=== PATIENT | female | born 1930 | race Caucasian/White ===

== ENCOUNTER 2016-04-10 12:02 | Inpatient (IN) | payer MEDICARE, BC, OTHER ==
[~2016-04-10] VITALS: Ht 149.9 cm; Wt 62.1 kg
[2016-04-10 13:55] VITALS: Ht 149.9 cm; Wt 62.1 kg
[2016-04-10 13:56] VITALS: BP_SYST 104; RESP 18; TEMP 98.1
[2016-04-10] MEDS ORDERED: SODIUM CHLORIDE 0.9% 1,000 ML IV SCH (14:10)
[2016-04-10 15:41] VITALS: BP_SYST 98; RESP 16; TEMP 97.8
[2016-04-10] MEDS ORDERED: humuLIN REG INSULIN IV PUSH ONE (16:15)
[2016-04-10] MEDS ORDERED: KAYEXOLATE 15 GM/60 ML BTL PO ONE (16:15)
[2016-04-10] MEDS ORDERED: SODIUM BICARB 8.4% 150 ML in DEXTROSE 5% 1,000 ML IV ONE (16:15)
[2016-04-10] MEDS: DEXTROSE 50% SYRINGE 50 ML IV ONE ×2 (16:15→18:01)
[2016-04-10] MEDS ORDERED: GLUCAGON 1 MG VIAL IM PRN (16:50)
[2016-04-10] MEDS ORDERED: DEXTROSE 50% SYRINGE 50 ML IV PRN (16:50)
[2016-04-10] MEDS ORDERED: SALINE FLUSH 10 ML FLUSH PRN (17:00)
[2016-04-10 17:28] VITALS: RESP 16
[2016-04-10] MEDS ORDERED: TRAMADOL 50 MG TAB PO PRN (18:50)
[2016-04-10] MEDS ORDERED: FAMOTIDINE 20 MG/50 ML 50 ML IV SCH (20:00)
[2016-04-10 20:26] VITALS: BP_SYST 108; RESP 20; TEMP 98.1
[2016-04-10] MEDS: LACTULOSE SOLN 20GM/30ML UDC PO SCH (20:57)
[2016-04-10] MEDS: SALINE FLUSH 10 ML FLUSH SCH (20:57)
[2016-04-10] MEDS: FAMOTIDINE 20 MG INJ IV SCH (20:58)
[2016-04-10 23:04] VITALS: BP_SYST 113; RESP 18; TEMP 98
[2016-04-10] MEDS: CEFTRIAXONE 1 GM in SODIUM CHLORIDE 0.9% 50 ML IV SCH (23:22)
[2016-04-10] MEDS: Atorvastatin 40 MG TAB PO SCH (23:22)
[2016-04-11] VITALS (8 sets, daily range): BP systolic 94–114; RESP 16–18; TEMP 98.1–98.8
[2016-04-11] MEDS: SODIUM CHLORIDE 0.9% 1,000 ML IV SCH ×2 (03:08→16:45)
[2016-04-11] MEDS: SODIUM CHLORIDE 0.9% FLUSH BAG 500 ML IV SCH (03:08)
[2016-04-11] MEDS: LEVOTHYROXINE 0.125 MG TAB PO SCH (07:28)
[2016-04-11] MEDS: FAMOTIDINE 20 MG INJ IV SCH ×2 (08:19→20:43)
[2016-04-11] MEDS: LACTULOSE SOLN 20GM/30ML UDC PO SCH ×2 (08:19→20:43)
[2016-04-11] MEDS: TAMSULOSIN 0.4 MG CAP PO SCH (08:19)
[2016-04-11] MEDS: CLOPIDOGREL 75 MG TAB PO SCH (08:19)
[2016-04-11] MEDS: DULoxetine 30 MG CAP PO SCH (08:19)
[2016-04-11] MEDS: CEFTRIAXONE 1 GM in SODIUM CHLORIDE 0.9% 50 ML IV SCH (08:20)
[2016-04-11] MEDS: SALINE FLUSH 10 ML FLUSH SCH ×2 (08:20→19:47)
[2016-04-11] MEDS: Atorvastatin 40 MG TAB PO SCH (20:43)
[2016-04-12] VITALS (10 sets, daily range): BP systolic 103–137; RESP 16–20; TEMP 98–98.7
[2016-04-12] MEDS: SODIUM CHLORIDE 0.9% 1,000 ML IV SCH (02:29)
[2016-04-12] MEDS: SODIUM CHLORIDE 0.9% FLUSH BAG 500 ML IV SCH (02:30)
[2016-04-12] MEDS: LEVOTHYROXINE 0.125 MG TAB PO SCH (05:45)
[2016-04-12] MEDS ORDERED: PHARMACY TO DOSE VANCOMYCIN IV SCH (07:50)
[2016-04-12] MEDS: FAMOTIDINE 20 MG INJ IV SCH ×2 (08:13→20:26)
[2016-04-12] MEDS: LACTULOSE SOLN 20GM/30ML UDC PO SCH ×2 (08:13→20:30)
[2016-04-12] MEDS: CLOPIDOGREL 75 MG TAB PO SCH (08:13)
[2016-04-12] MEDS: TAMSULOSIN 0.4 MG CAP PO SCH (08:13)
[2016-04-12] MEDS: DULoxetine 30 MG CAP PO SCH (08:13)
[2016-04-12] MEDS: CEFTRIAXONE 1 GM in SODIUM CHLORIDE 0.9% 50 ML IV SCH (08:14)
[2016-04-12] MEDS: SALINE FLUSH 10 ML FLUSH SCH ×2 (08:14→20:25)
[2016-04-12] MEDS: VANCOMYCIN 1,000 MG in SODIUM CHLORIDE 0.9% 250 ML IV SCH (09:39)
[2016-04-12] MEDS: Atorvastatin 40 MG TAB PO SCH (20:27)
[2016-04-12] MEDS: TRAMADOL 50 MG TAB PO PRN (20:28)
[2016-04-13] VITALS (8 sets, daily range): BP systolic 98–132; RESP 16–20; TEMP 97.8–98.8
[2016-04-13] MEDS: SODIUM CHLORIDE 0.9% FLUSH BAG 500 ML IV SCH (06:01)
[2016-04-13] MEDS: LEVOTHYROXINE 0.125 MG TAB PO SCH (06:02)
[2016-04-13] MEDS: FAMOTIDINE 20 MG INJ IV SCH (08:13)
[2016-04-13] MEDS: CEFTRIAXONE 1 GM in SODIUM CHLORIDE 0.9% 50 ML IV SCH (08:40)
[2016-04-13] MEDS: CLOPIDOGREL 75 MG TAB PO SCH (08:40)
[2016-04-13] MEDS: DULoxetine 30 MG CAP PO SCH (08:40)
[2016-04-13] MEDS: TAMSULOSIN 0.4 MG CAP PO SCH (08:40)
[2016-04-13] MEDS: SALINE FLUSH 10 ML FLUSH SCH ×2 (08:40→20:54)
[2016-04-13] MEDS: LACTULOSE SOLN 20GM/30ML UDC PO SCH ×2 (08:41→21:07)
[2016-04-13] MEDS: TRAMADOL 50 MG TAB PO PRN (08:51)
[2016-04-13] MEDS: VANCOMYCIN 1,000 MG in SODIUM CHLORIDE 0.9% 250 ML IV SCH (09:57)
[2016-04-13] MEDS: OLOPATADINE 0.1% OP SOLN EYE EACH SCH ×2 (15:19→20:54)
[2016-04-13] MEDS: Carvedilol 3.125 MG TAB PO SCH ×2 (15:19→21:07)
[2016-04-13] MEDS: SPIRONOLACTONE 25 MG TAB PO SCH (15:19)
[2016-04-13] MEDS: FAMOTIDINE 20 MG TAB PO SCH (21:00)
[2016-04-13] MEDS: DIPHENHYDRAMINE 25 MG CAP PO SCH (21:08)
[2016-04-13] MEDS: Atorvastatin 40 MG TAB PO SCH (21:08)
[2016-04-14] VITALS (8 sets, daily range): BP systolic 111–132; RESP 12–20; TEMP 97.9–98.9
[2016-04-14] MEDS: LEVOTHYROXINE 0.125 MG TAB PO SCH (08:37)
[2016-04-14] MEDS: OLOPATADINE 0.1% OP SOLN EYE EACH SCH ×2 (08:38→20:25)
[2016-04-14] MEDS: CEFTRIAXONE 1 GM in SODIUM CHLORIDE 0.9% 50 ML IV SCH (08:38)
[2016-04-14] MEDS: Carvedilol 3.125 MG TAB PO SCH ×2 (08:39→20:25)
[2016-04-14] MEDS: SPIRONOLACTONE 25 MG TAB PO SCH (08:39)
[2016-04-14] MEDS: LACTULOSE SOLN 20GM/30ML UDC PO SCH ×3 (08:40→20:25)
[2016-04-14] MEDS: DULoxetine 30 MG CAP PO SCH (08:40)
[2016-04-14] MEDS: FAMOTIDINE 20 MG TAB PO SCH ×2 (08:40→20:25)
[2016-04-14] MEDS: CLOPIDOGREL 75 MG TAB PO SCH (08:40)
[2016-04-14] MEDS: TAMSULOSIN 0.4 MG CAP PO SCH (08:40)
[2016-04-14] MEDS: TRAMADOL 50 MG TAB PO PRN (08:43)
[2016-04-14] MEDS: SALINE FLUSH 10 ML FLUSH SCH ×2 (08:45→20:26)
[2016-04-14] MEDS: SODIUM CHLORIDE 0.9% FLUSH BAG 500 ML IV SCH (08:45)
[2016-04-14] MEDS: VANCOMYCIN 1,000 MG in SODIUM CHLORIDE 0.9% 250 ML IV SCH (10:13)
[2016-04-14] MEDS: Atorvastatin 40 MG TAB PO SCH (20:25)
[2016-04-14] MEDS: DIPHENHYDRAMINE 25 MG CAP PO SCH (20:25)
[2016-04-15] MEDS: TRAMADOL 50 MG TAB PO PRN ×2 (01:57→08:59)
[2016-04-15 02:57] VITALS: BP_SYST 119; RESP 18; TEMP 99
[2016-04-15] MEDS: LEVOTHYROXINE 0.125 MG TAB PO SCH (06:15)
[2016-04-15] MEDS: SODIUM CHLORIDE 0.9% FLUSH BAG 500 ML IV SCH (06:15)
[2016-04-15 07:30] VITALS: BP_SYST 131; RESP 16; TEMP 98.2
[2016-04-15] MEDS: CEFTRIAXONE 1 GM in SODIUM CHLORIDE 0.9% 50 ML IV SCH (08:57)
[2016-04-15] MEDS: DULoxetine 30 MG CAP PO SCH (08:57)
[2016-04-15] MEDS: FAMOTIDINE 20 MG TAB PO SCH (08:57)
[2016-04-15] MEDS: CLOPIDOGREL 75 MG TAB PO SCH (08:57)
[2016-04-15] MEDS: SALINE FLUSH 10 ML FLUSH SCH (08:57)
[2016-04-15] MEDS: OLOPATADINE 0.1% OP SOLN EYE EACH SCH (08:57)
[2016-04-15] MEDS: SPIRONOLACTONE 25 MG TAB PO SCH (08:58)
[2016-04-15] MEDS: TAMSULOSIN 0.4 MG CAP PO SCH (08:58)
[2016-04-15] MEDS: Carvedilol 3.125 MG TAB PO SCH (08:58)
[2016-04-15] MEDS: LACTULOSE SOLN 20GM/30ML UDC PO SCH (09:09)
[2016-04-15 10:59] VITALS: BP_SYST 115; RESP 20; TEMP 97.8
[2016-04-15 13:06] VITALS: BP_SYST 115; RESP 20; TEMP 97.8
[2016-04-15] MEDS ORDERED: OLOPATADINE 0.1% OP SOLN EYE EACH SCH (21:00)
== END 2016-04-15 15:59 | disposition home or self-care (01) | DRG 442 ==
LOC: ENRESERVDT → ENRESERVTM → 3NT 13:39
PROVIDERS: ADMIT Hospitalist; ATTEND Hospitalist
DX: K72.90 Hepatic failure, unspecified without coma (principal); E87.1 Hypo-osmolality and hyponatremia; E11.42 Type 2 diabetes mellitus with diabetic polyneuropathy; E11.65 Type 2 diabetes mellitus with hyperglycemia; N39.0 Urinary tract infection, site not specified; E86.0 Dehydration; K75.4 Autoimmune hepatitis; K74.60 Unspecified cirrhosis of liver; R19.7 Diarrhea, unspecified; I25.10 Atherosclerotic heart disease of native coronary artery without angina pectoris; Z87.11 Personal history of peptic ulcer disease; M19.90 Unspecified osteoarthritis, unspecified site; M54.10 Radiculopathy, site unspecified; E87.5 Hyperkalemia; E03.9 Hypothyroidism, unspecified; H10.10 Acute atopic conjunctivitis, unspecified eye; Z79.02 Long term (current) use of antithrombotics/antiplatelets; Z79.4 Long term (current) use of insulin; G89.29 Other chronic pain; M54.5 Low back pain; Z86.73 Personal history of transient ischemic attack (TIA), and cerebral infarction without residual deficits; E53.8 Deficiency of other specified B group vitamins; I25.2 Old myocardial infarction; Z96.642 Presence of left artificial hip joint; K74.69 Other cirrhosis of liver
CPT/HCPCS: 70450; 71010; 80048; 80053; 81001; 82140; 82553; 82947; 83036; 83605; 84439; 84443; 84484; 85025; 87040; 87045; 87046; 87077; 87088; 87493; 94799; 99223; 99233; 99238